=== PATIENT | male | born 1990 | race Two or more races ===

== ENCOUNTER 2023-04-29 22:41 | Emergency (ER) | payer MEDICAID, OTHER ==
[~2023-04-29] VITALS: Ht 188 cm; Wt 136.4 kg
[2023-04-30] MEDS ORDERED: KETOROLAC TROMETH 30 MG/ML 1ML VIAL IM ONE (01:00)
[2023-04-30 01:26] VITALS: BP 100/59; PULSE 80; RESP 18; TEMP 98.4; O2SAT 94
== END 2023-04-30 01:46 | disposition home or self-care (01) ==
LOC: EDBD 22:41 → ER 22:41
DX: S80.811A Abrasion, right lower leg, initial encounter (principal); M25.552 Pain in left hip; R51.9 Headache, unspecified; W22.8XXA Striking against or struck by other objects, initial encounter; Y93.K1 Activity, walking an animal; Y92.89 Other specified places as the place of occurrence of the external cause; Y99.8 Other external cause status
CPT/HCPCS: 70450; 73502; 73610; 96372; 99285; J1885